=== PATIENT | male | born 1945 ===

== ENCOUNTER → 2021-04-23 09:03 | Outpatient (CLI) | payer MEDICARE, OTHER, SELFPAY ==
[2021-04-23 13:06] LABS: COVID19 - ADMIT (NP swab/PCR) Negative (Negative)
== END ==
PROVIDERS: Family Provider Orthopaedic Surgery; PCP Orthopaedic Surgery; Referring Provider Nurse Practitioner Family; Visit Provider Nurse Practitioner Family
DX: Z20.822 Contact with and (suspected) exposure to COVID-19 (principal)
CPT/HCPCS: C9803; U0003